=== PATIENT | female | born 1985 | race Caucasian/White ===

== ENCOUNTER 2016-07-01 01:14 | Emergency (ER) | payer MEDICAID ==
[~2016-07-01] VITALS: Ht 160 cm; Wt 81.5 kg
[2016-07-01 03:08] VITALS: BP 117/68
== END 2016-07-01 04:39 | disposition home or self-care (01) ==
LOC: ED 02:15
DX: O26.891 Other specified pregnancy related conditions, first trimester (principal); Z3A.11 11 weeks gestation of pregnancy; R10.2 Pelvic and perineal pain
CPT/HCPCS: 36415; 76801; 81001; 84702; 87086; 99285

== ENCOUNTER 2018-09-27 07:52 | Emergency (ER) | payer MEDICAID ==
[~2018-09-27] VITALS: Ht 160 cm; Wt 81.6 kg
[2018-09-27 07:56] VITALS: BP 124/86
== END 2018-09-27 09:25 | disposition home or self-care (01) ==
LOC: ED 08:48
DX: H10.023 Other mucopurulent conjunctivitis, bilateral (principal); Z90.49 Acquired absence of other specified parts of digestive tract
CPT/HCPCS: 99283

== ENCOUNTER 2018-09-29 14:14 | Emergency (ER) | payer MEDICAID ==
[~2018-09-29] VITALS: Ht 160 cm; Wt 82.6 kg
[2018-09-29 14:23] VITALS: BP 132/76
== END 2018-09-29 16:29 | disposition home or self-care (01) ==
LOC: ED 16:20
DX: H10.023 Other mucopurulent conjunctivitis, bilateral (principal)
CPT/HCPCS: 99284

== ENCOUNTER 2019-09-28 22:59 | Emergency (ER) | payer MEDICAID ==
[~2019-09-28] VITALS: Ht 160 cm; Wt 76.2 kg
[2019-09-29] MEDS ORDERED: SODIUM CHLORIDE FLUSH 10ML SYR IVF ONE
--- NOTE | 2019-09-29 00:22 | NUR ---
Pt amb w/ steady gait to room at this time.
[2019-09-29 00:26] LABS: BASOPHILS # (AUTO) 0.03 x10^3/uL (0-0.1); BASOPHILS % (AUTO) 0 % (0-1); EOSINOPHILS # (AUTO) 0.04 x10^3/uL (0-0.4); EOSINOPHILS % (AUTO) 1 % (1-7); LYMPHOCYTES # (AUTO) 2.09 x10^3/uL (1-3.4); LYMPHOCYTES % (AUTO) 26 % (22-44); MD NO; MEAN CORPUSCULAR HEMOGLOBIN 28.8 pg (27.0-34.8); MEAN CORPUSCULAR HGB CONC 33.3 g/dL (32.4-35.8); MEAN CORPUSCULAR VOLUME 86.5 fL (80-100); MEAN PLATELET VOLUME 8.6 fL (7.4-10.4); MONOCYTES % (AUTO) 8 % (2-9); NEUTROPHILS % (AUTO) 66 % (42-75); PLATELET COUNT 386 x10^3/uL (130-400); RED BLOOD COUNT 4.11 x10^6/uL (3.82-5.3); RED CELL DISTRIBUTION WIDTH 14.3 % (9.6-15.2)
[2019-09-29 00:37] LABS: ALANINE AMINOTRANSFERASE 84 U/L (12-78); ANION GAP 7 mmol/L (5-15); CALCIUM 8.8 mg/dL (8.5-10.1); CHLORIDE 107 mmol/L (98-107); CREATININE 0.81 mg/dL (0.55-1.02)
[2019-09-29 00:42] LABS: ALKALINE PHOSPHATASE 54 U/L (45-117); BILIRUBIN,TOTAL 0.3 mg/dL (0.2-1.0); TOTAL PROTEIN 7.9 g/dL (6.4-8.2)
[2019-09-29] MEDS ORDERED: ONDANSETRON 2MG/ML, 2ML ONE (00:59)
[2019-09-29] MEDS ORDERED: KETOROLAC 30 MG/1 ML ONE (00:59)
[2019-09-29] MEDS ORDERED: ONDANSETRON 2MG/ML, 2ML IVPush ONE (01:00)
[2019-09-29] MEDS ORDERED: KETOROLAC 30 MG/1 ML IVPush ONE (01:00)
[2019-09-29] MEDS ORDERED: SODIUM CHLORIDE 0.9% 1,000ML IVBOLUS ONE (01:00)
--- NOTE | 2019-09-29 01:20 | NUR ---
URINE COLLECTED AND SENT TO LAB
[2019-09-29 01:40] LABS: MICROSCOPIC AUTO
[2019-09-29 03:09] VITALS: BP 119/73
== END 2019-09-29 03:11 | disposition home or self-care (01) ==
LOC: ED 09-29 00:36
DX: N30.00 Acute cystitis without hematuria (principal); R11.2 Nausea with vomiting, unspecified; R51 Headache; F17.210 Nicotine dependence, cigarettes, uncomplicated
CPT/HCPCS: 36415; 74021; 80053; 81001; 83690; 84703; 85025; 87086; 96361; 96374; 96375; 99284; 99406; J1885; J2405; J7030